=== PATIENT | female | born 2005 | race Caucasian/White ===

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

== ENCOUNTER 2024-04-25 17:30 | Emergency (ER) | payer MEDICAID, SELFPAY ==
[2024-04-25 17:41] VITALS: BP 131/83; PULSE 97; RESP 16; TEMP 36.9; O2SAT 98; BMI 51.9
--- NOTE | 2024-04-25 17:52 | XRR_ITS ---
PROCEDURE INFORMATION: Exam: XR Left Hand Exam date and time: 04/25/2024 6:11 PM Age: 18 years old Clinical indication: Pain and injury or trauma; Left; Patient HX: Lt hand pain; Dog bite to lt distal index finger TECHNIQUE: Imaging protocol: Radiologic exam of the left hand. Views: 3 or more views. COMPARISON: No relevant prior studies available. FINDINGS: Bones/joints: Normal. Soft tissues: Normal. XR/XR hand LT min 3V* [id number] IMPRESSION: No acute findings.
[2024-04-25] MEDS: amoxicillin-clav 875-125 mg Tablet 1 TAB PO (18:12)
--- NOTE | 2024-04-25 18:19 | ED_ITS ---
HPI - Animal Bite General: Chief Complaint: Animal Bite Stated Complaint: dog bit left hand first finger Time Seen by Provider: 04/25/24 17:37 History of Present Illness: Healthy 18-year-old female presents emergency room after she was bit by dog. It was her dog. She has a puncture wound on the palmar side of her index finger. No other injuries. Neurovascularly intact. Bleeding is controlled. No obvious deformities. Related Data Previous Rx's Medication Instructions Recorded naproxen 500 mg tablet 500 mg PO BID #20 tabs 07/07/21 amoxicillin 875 mg-potassium 1 tab PO BID #14 tabs 04/29/22 clavulanate 125 mg tablet amoxicillin 875 mg-potassium 1 tab PO BID 10 days #20 tabs 04/25/24 clavulanate 125 mg tablet Allergies Allergy/AdvReac Type Severity Reaction Status Date / Time No Known Allergies Allergy Verified 07/07/21 20:34 Review of Systems Narrative: Constitutional symptoms: Negative except as documented in HPI. Skin symptoms: Negative except as documented in HPI. Eye symptoms: Negative except as documented in HPI. ENMT symptoms: Negative except as documented in HPI. Respiratory symptoms: Negative except as documented in HPI. Cardiovascular symptoms: Negative except as documented in HPI. Gastrointestinal symptoms: Negative except as documented in HPI. Genitourinary symptoms: Negative except as documented in HPI. Musculoskeletal symptoms: Negative except as documented in HPI. Neurologic symptoms: Negative except as documented in HPI. Psychiatric symptoms: Negative except as documented in HPI. Endocrine symptoms: Negative except as documented in HPI. [facility] ED PFSH: Medical History No pertinent family history Surgical History No pertinent past surgical history Physical Exam Narrative: EXAM NARRATIVE: General: Alert, no acute distress. Skin: warm and dry. Puncture wound on the distal index finger, palmar side. Bleeding controlled. No deformities. Neurovascularly intact. Head: Normocephalic Neck: Trachea midline Eye: Extraocular movements are intact. Ears, nose, mouth and throat: Oral mucosa moist Respiratory: Respirations are non-labored Musculoskeletal: Normal ROM Neurological: Alert and oriented, No focal neurological deficit observed. Psychiatric: Cooperative, appropriate mood & affect. Course Vital Signs: Vital signs: Vital Signs Temperature 98.4 F 04/25/24 17:41 Pulse Rate 97 04/25/24 17:41 Respiratory Rate 16 04/25/24 17:41 Blood Pressure 131/83 04/25/24 17:41 Pulse Oximetry 98 04/25/24 17:41 Oxygen Delivery Me thod Room Air 04/25/24 17:41 MDM - Animal Bite Medical Decision Making X-ray of the left hand shows no fractures of the affected finger. Films were interpreted by myself the emergency room provider and pending final radiology review. Assessment and plan: Dog bite ? First dose Augmentin here in the emergency room - Discharged home - Discussed plan with patient. Answered any questions. - Evaluation and treatment of this problem were appropriate in the emergency setting. XR interpretation done by ED provider, pending radiology final review Discharge Plan Discharge Patient Disposition: Home Clinical Impression: Dog bite Condition: Stable Prescriptions: New amoxicillin-pot clavulanate 875-125 mg tablet 1 tab PO BID 10 Days Qty: 20 0RF No Action naproxen 500 mg tablet 500 mg PO BID Qty: 20 0RF amoxicillin-pot clavulanate 875-125 mg tablet 1 tab PO BID Qty: 14 0RF Discharge Orders: Discharge ED (Routine); Ordered 04/25/24 Ordered By: Shanti Smith Discharge Diet: Usual diet Discharge Activity: Resume usual activity Patient Instructions: Animal Bite (ED) Activity Restrictions/Additional Instructions: Thank you for choosing [facility] for your healthcare needs today. Please realize this is an emergency room and that we are providing you with a medical screening exam and this may not be complete and all inclusive of all the testing and or work up that you may need to determine your ailment or severity of your illness. You have been screened and evaluated and felt safe for discharge. Health conditions do change or evolve sometimes and as such it is important that you follow up with your Primary Doctor to be re checked, 3-5 days is a general good time frame for follow up. You are always welcome to return to the ED for re assessment if your symptoms are worsening or you have new concerns Coding Level of Care Code ED Can Repairer for Sarah Noel
[2024-04-25 18:37] VITALS: BP 135/81; PULSE 86; RESP 17; O2SAT 99
--- NOTE | 2024-04-25 18:37 | PC.NURSE ---
wound soaked in betadine and sterile water for 5 min, cleansed and dried then gauze and coban dressing placed. Pt tolerated well.
== END 2024-04-25 18:35 | disposition home or self-care (01) ==
PROVIDERS: Emergency Provider Emergency Medicine
DX: S61.251A Open bite of left index finger without damage to nail, initial encounter (principal); W54.0XXA Bitten by dog, initial encounter
CPT/HCPCS: 73130; 99283

== ENCOUNTER 2025-03-05 18:50 | Emergency (ER) | payer SELFPAY ==
--- OUTSIDE RECORDS SUMMARY | 2021-07-20 09:15 | XMS_ITS | Continuity of Care Document ---
Author Organization [facility] Address [id number] [address] Phone Care Team Providers Care Director Global Market Research Name Role Phone Luan Worrell DDSew Unavailable Unavailable Allergies, Adverse Reactions, Alerts Substance Reaction Status Criticality No Known Allergies Active No Inform ation Procedures Procedure Date Intraoral Periapical First Film Limited Oral Evaluation Problem Focused EDR Approval Note Resin-Based Composite Two Surfaces, Anterior Resin-Based Composite Two Surfaces, Anterior EDR Approval Note Bitewings Four Films Intraoral Periapical First Film Intraoral Periapical Each Additional Film Intraoral Periapical Each Additional Film Intraoral Periapical Each Additional Film Panoramic Film Comprehensive Oral Evaluatio n New Or Established Prophylaxis Adult Topical Fluoride Varnish; Therapeutic Ap plication Sealant Per Tooth Sealant Per Tooth Sealant Per Tooth Sealant Per Tooth Sealant Per Tooth Sealant Per Tooth Sealant Per Tooth Sealant Per Tooth EDR Approval Note Advance Directives Directive Yes / No Effective Date File Name No Information Encounters Encounter Description Practice Location Reason(s) For Visit Diagnoses Date Provider Providers Copied on Encounter [facility], [id number] [facility], [place], [id number], [place] tel:[phone] [facility] No Information 1 Anaid Mullins. [address] [place], [address] , [place]. tel:[phone] Referring Provider: Harpreet Worrell, [address] [place], [address] . tel:[phone] [facility], [id number] [facility], [place], [id number], [place] tel:[phone] [facility] No Information 1 Anaid Mullins. [address], [address] , [place]. tel:[phone] Referring Provider: Harpreet Worrell, [address] [place], [address] . [phone] sulting Provider: Leta Moncada, [address] [place], [address] . tel:[phone] [facility], [id number]- [facility], [place], [place], [id number], [place] tel:[phone] [facility] Encounter for dental exam and cleaning w/o abnormal findingsEncounter for prophylactic fluoride administration 1 Anaid Mullins. [address], [address] , [place]. tel:[phone] Referring Provider: Harpreet Worrell, [address] [place], [address] . tel:[phone] Family History Family Member Type Diagnosis Age At Onset No Information Payers Payer name Insurance type Covered libertarian ID haim toussaint(s) [facility] [id number] Social History Type Description Quantity Date Captured Comments Alcohol Use Details No Caffeine Use Details Unknown Tobacco Use Status No Information Smoking Status No Information Sex Female Sexual Orientation Heterosexual Gender Identity Female Chief Complaint And Reason For Visit No Information Reason For Referral Reason For Referral No Information History Of Present Illness Encounter Date Complaint History Of Prese nt Illness No Information Functional Status Date Functional Assessmen t No Information Instructions Date Instruction Additional Infor mation Lifestyle education Related to D ental Examination Assessments Type Assessment Date No Information Patient Care Teams Name Effective Dates (start - stop) Status Members No Information
--- OUTSIDE RECORDS SUMMARY | 2024-10-31 18:10 | XMS_ITS | Continuity of Care Document ---
Author Organization [facility]. If a dditional information is needed, contact Health Information Management at [phone] Address [address] [place] [address] Phone Care Team Providers Care Point Of Care Technician Name Role Phone Unavailable Unavailable Unavailable Unavailable Unavailable Unavailable Unavailable Unavailable Unavailable Unavailable Unavailable Unavailable Problems Sprain of ankle Onset:31-Oct-2024 Nannette Combs DO Allergies and Adverse Reactions No Known Allergies(Allergy) Onset: 31-Oct-2024 Procedures FOOT LEFTResult:PATIENT NAME: FREIDA BRASWELL UNIT NO: [id number] EXAMS: CPT CODE: [id number] XR FOOT LEFT 51856 REASON FOR EXAM: Ankle/foot injury. Calcaneal pain. TIME OF EXAM: 10/31/2024 10:21 PM COMPARISON: None TECHNIQUE: 3 views of the left ankle and foot FINDINGS: LEFT ANKLE: There is no acute fracture or dislocation in the left ankle. Ankle mortise is intact. Joint spaces are well maintained. LEFT FOOT: There is no acute fracture dislocation in the left foot. Bipartite medial hallux sesamoid bone is noted. 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 Joint spaces are maintained. No unexpected radiopaque foreign body is visualized. IMPRESSION: 1. No acute fracture or dislocation in the left ankle or foot. at 7448 Reported and signed by: ADRIANE WILHELM MD CC: TECHNOLOGIST: Gera Piedra RTR CT TRANSCRIBED DATE/Time: 10/31/20242327 BY: [email or web address] EXAM COMPLETE DATE/TIME: 20241031 D/TM:10/31/2024 (5083) [facility] ER NAME: FREIDA BRASWELL [address] [facility] HP: AGE: 19 S:F [place] [address] : 2005 LOC: E.ED PHYS: Himanshu Shukla DO PHONE #: [phone] EXAM DATE: 10/31/2024 STATUS: DEP ER FAX #: [phone] A#: [id number] U#: [id number] PAGE 1 Signed Report *Final Page* Date:31-Oct-2024 Status:Completed ANKLE LEFTResult:PATIENT NAME: FREIDA BRASWELL UNIT NO: [id number] EXAMS: CPT CODE: [id number] XR ANKLE 3 V LT [address]1396 REASON FOR EXAM: Ankle/foot injury. Calcaneal pain. TIME OF EXAM: 10/31/2024 10:21 PM COMPARISON: None TECHNIQUE: 3 views of the left ankle and foot FINDINGS: LEFT ANKLE: There is no acute fracture or dislocation in the left ankle. Ankle mortise is intact. Joint spaces are well maintained. LEFT FOOT: There is no acute fracture dislocation in the left foot. Bipartite medial hallux sesamoid bone is noted. 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 Joint spaces are maintained. No unexpected radiopaque foreign body is visualized. IMPRESSION: 1. No acute fracture or dislocation in the left ankle or foot. at 2328 Reported and signed by: ADRIANE WILHELM MD CC: TECHNOLOGIST: Gera Piedra RTR CT TRANSCRIBED DATE/Time: 10/31/20248 BY: [email or web address] EXAM COMPLETE DATE/TIME: 20241031 D/TM:10/31/2024 (2333) [facility] ER NAME: FREIDA BRASWELL [address] [facility] HP: AGE: 19 S:F [place] [address] : 2005 LOC: E.ED PHYS: Himanshu Shukla DO PHONE #: [phone] EXAM DATE: 10/31/2024 STATUS: DEP ER FAX #: [phone] A#: [id number] U#: [id number] PAGE 1 Signed Report *Final Page* Date:31-Oct-2024 Status:Completed Social History Smoking Status Never smoked tobacco Recorded: 31-Oct-2024 Vital Signs 31-Oct-2024 22:00 Pulse99 Comments:99 Respiratory Rate18 Comments:18 O2 NVV481% Comments:100 BP Laerpmau017ve[Hg] Comments:14 3 BP Vbhiiudqu40ct[Hg] Comments:88 Height5.2545416[ft_us] Comments: 5 Gsrcul153.55kg Comments:131.550 31-Oct-2024 22:00 DAQ07ar/m2 Comments:53.0 Encounters Emergency Encounter Reason:L ANKLE INJURY Encounter Diagnosis:Other and unspecified overexertion or strenuous movements or postures, initial encounter,Sprain of unspecified ligament of left ankle, initial encounter 31-Oct-2024 21:[id number] 23:10 [facility] Discharge Disposition:Discharged to home or self care (routine discharge) Nannette Combs FC-25-Pid31-Oct-2024 [facility] ([facility]) [facility] PROVIDER REPORTREPORT#:[id number] REPORT STATUS: FSignDATE:10/31/24 TIME: 2308PATIENT: FREIDA BRASWELL UNIT #: [id number]#: [id number] ROOM/BED: E.EDDOB: [birth year] AGE: 19 SEX: PCP PHYS: No Primary or Family PhysicianADM DATE: 10/31/24 INI AUTH: Himanshu Brunson DOED ADMIT LAST SIG: Himanshu Brunson DOREP SERV REP SERV TM: 2309 * ALL edits or amendments must be made on the electronic/computer document *HPI GREETGeneralInitial Greet Date/Time 10/31/242147Clinical NoteClinical NoteFirst Documented: Result Date Time Pulse Ox 100 10/310 B/P 143/88 10/31 2199 O2 Delivery Room air 10/31 2199 Pulse 99 10/31 2199 Resp 18 10/310Last Documented: Result Date Time Pulse Ox 100 10/310 B/P 143/88 10/31 2199 O2 Delivery Room air 10/31 2199 Pulse 99 10/31 2199 Resp 18 10/31 2199Patient is very pleasant 19-year-old female presenting for evaluation of leftankle pain. Patient [place] off the side of the pool with her left foot immediatelyfelt a pain in her left ankle. She endorses some pain in her left Achillesregion but also has pain at the lateral malleolus. Did not sustain anyadditional injury.Physical ExamGen: awake, alert and in no acute distressCardiac: regular rate and rhythmPulmonary: no respiratory distress, speaking in full sentencesExtremities: Ambulatory in no acute distress and able to bear weight onbilateral lower extremities. Tenderness palpation of the lateral malleolus aswell as some tenderness palpation in the region of the Achilles. Able toplantarflex without difficulty. Achilles tendon easily palpable withoutmobility. +2 dorsalis pedis and posterior tibial pulses bilaterally.Neurovascular intact.Neuro: Grossly normal speech and normal motorMedical Decision Making / Complexity of Problem- Number and complexity of problems addressed: 1 acute traumatic injury- History obtained from additional independent historian(s):- I have reviewed prior external notes from:- I have ordered: see below for labs/imaging tests that have been ordered andreviewed.- I have independently interpreted test(s): final interpretation of images is byboard certified radiologist, but I have reviewed the imaging studies and myinterpretation is:- I have discussed management/test interpretation with:- Risk of Complications and/or Morbidity or Mortality of Patient Management:moderate.- Medications/prescriptions management: Below- Based on the seriousness of patient's presentation and comorbidities, thefollowing interventions were ordered and done: Below- Social determinants of health that impact diagnosis or treatment:- Disposition of the patient/consideration of hospitalization: DischargePast Medical HistoryStated Complaint L ANKLE INJURYAllergiesCoded Allergies:No Known Allergies (10/31/24)Smoking status for patients 13 years old or older: Never SmokerCOURSEDataDiagnosticsRecent Impressions:DIAGNOSTIC RADIOLOGY - XR FOOT LEFT 10/31 2220 Report Impression - Status: SIGNED Entered: 10/31/2024 0773IMPRESSION:1. No acute fracture or dislocation in the left ankle or foot.Impression By: NICOLE - ADRIANE WILHELM, SHANEIAGNOSTIC RADIOLOGY - XR ANKLE 3 V LT 10/31 2220 Report Impression - Status: SIGNED Entered: 10/31/2024 2333IMPRESSION:1. No acute fracture or dislocation in the left ankle or foot.Impression By: NICOLE - ADRIANE WILHELM, MDPatient Discharge DepartureVital Signs/ConditionVital SignsFirst Documented: Result Date Time Pulse Ox 100 10/31 2200 B/P 143/88 10/31 2200 O2 Delivery Room air 10/31 2199 Pulse 99 10/31 2200 Resp 18 10/31 2200Last Documented: Result Date Time Pulse Ox 100 10/31 2200 B/P 143/88 10/31 2200 O2 Delivery Room air 10/31 2199 Pulse 99 10/31 2200 Resp 18 10/31 2199All vital signs available at the time of this entry have been reviewed.Clinical ImpressionClinical ImpressionPrimary Impression: Ankle sprainDisposition DecisionDischarge )( Discharged to Home Yes )( Time 2309 )( Date 10/31/24Discharge/Care PlanPatient Instructions Ankle SprainReferralsProvider Referral: No Primary or Family PhysicianDeparture Forms*[facility] #: [id number] OF REPORT Plan of Treatment Future Tests Future scheduled test information is unavailable Pending Tests Pending diagnostic test information is unavailable Future Visits Future appointment information is unavailable Referrals to Other Providers Reason for Referral Referral Start Date Provider Provider Contact Information Provider Address No Primary or Family Physician Future Procedures Future procedure information is unavailable Future Medications Future medication information is unavailable Patient Instructions Instruction Admit Date Ankle Sprain October 31, 2024 9:3 9pm Assessments Diagnosis Onset Date Resolution Status Admit Date Ankle sprain Active October 31, 2024 9:39pm
--- OUTSIDE RECORDS SUMMARY | 2025-03-05 18:08 | XMS_ITS ---
Author Organization [employer] [facility] Care Team Providers Care Roustabout Crew Leader Name Role Phone Himanshu Brunson DO Unavailable Unavailable REFERRED, SELF Unavailable Unavailable Physician, No Primary or Family Unavailable Unavailable Encounters Encounter Date Encounter Type Encounter Diagnosis Care Pro vider Facility Start: 10-31-2024 21:39-0400 End: 10-31-2024 23:100400 Emergency department patient visit Sprain of unspecified ligament of left ankle, initial encounter Himanshu Brunson DO [facility] Emergency department patient visit Himanshu Brunson DO [facility] Payers Date Payer Normalized Payer MEDICAID PENDING MEDICAID [id number] Problems Active Problems Problem Classification Problem Date Last Recorded Documented Date Chronic Condition Indicator Provider E Codes: Natural/environmen t (2 sources) Other and unspecified overexertion or strenuous movements or postures, initial encounter 11-03-2024 Not applicable Himanshu Brunson DO Past or Other Problems Problem Classification Problem Date Last Recorded Documented Date Chronic Condition Indicator Provider Sprains and strains (2 sources) Sprain of unspecified ligament of left ankle, initial encounter 11-03-2024 Episodic Himanshu Brunson DO Clinical Notes 10-31-2024 Note Date & Type Note Facility 10-31-2024 - XR ANKLE 3 V LT PATIENT NAME: FREIDA BRASWELL UNIT NO: [id number] EXAMS: CPT CODE: [id number] XR ANKLE 3 V LT 04361 REASON FOR EXAM: Ankle/foot injury. Calcaneal pain. [...] EXAM COMPLETE DATE/TIME: 20241031 D/TM:10/31/2024 (2333) [facility] ER NAME: FREIDA BRASWELL [address] [facility] HP: AGE: 19 S:[place] [address] : 2005 LOC: E.ED PHYS: Himanshu Shukla DO PHONE #: [phone] EXAM DATE: 10/31/2024 STATUS: DEP ER FAX #: [phone] A#: [id number] U#: [id number] PAGE 1 Signed Report *Final Page* [facility] 10-31-2024 - XR ANKLE 3 V LT PATIENT NAME: FREIDA BRASWELL UNIT NO: [id number] EXAMS: CPT CODE: [id number] XR ANKLE 3 V LT [address]64 REASON FOR EXAM: Ankle/foot injury. Calcaneal pain. [...] EXAM COMPLETE DATE/TIME: 20241031 D/TM:10/31/2024 (2333) [facility] ER NAME: FREIDA BRASWELL [facility] HP: AGE: 19 S:[place] [address] : 2005 LOC: E.ED PHYS: Himanshu Shukla DO PHONE #: [phone] EXAM DATE: 10/31/2024 STATUS: [facility] ER FAX #: [phone] A#: [id number] U#: [id number] PAGE 1 Signed Report *Final Page* [facility] 10-31-2024 - XR FOOT LEFT PATIENT NAME: FREIDA BRASWELL UNIT NO: [id number] EXAMS: CPT CODE: [id number] XR FOOT LEFT 59576 REASON FOR EXAM: Ankle/foot injury. Calcaneal pain. [...] EXAM COMPLETE DATE/TIME: 20241031 D/TM:10/31/2024 (2333) [facility] ER NAME: FREIDA BRASWELL [address] [facility] HP: AGE: 19 S:[place] [address] : 2005 LOC: E.ED PHYS: Himanshu Shukla DO PHONE #: [phone] EXAM DATE: 10/31/2024 STATUS: DEP ER FAX #: [phone] A#: [id number] U#: [id number] PAGE 1 Signed Report *Final Page* Clint Sigala 10-31-2024 - XR FOOT LEFT PATIENT NAME: FREIDA BRASWELL UNIT NO: [id number] EXAMS: CPT CODE: [id number] XR FOOT LEFT 98665 REASON FOR EXAM: Ankle/foot injury. Calcaneal pain. [...] EXAM COMPLETE DATE/TIME: 20241031 D/TM:10/31/2024 (2333) [facility] ER NAME: FREIDA BRASWELL [address] HP: AGE: 19 S:F [place] [address] : 2005 LOC: E.ED PHYS: Himanshu Shukla DO PHONE #: [phone] EXAM DATE: 10/31/2024 STATUS: [facility] ER FAX #: [phone] A#: [id number] U#: [id number] PAGE 1 Signed Report *Final Page* Clint [place] 10-31-2024 ED Clin[facility] [place] [facility] PROVID[facility] REPORT REPORT#:[id number] REPORT STATUS: Draft DATE:10/31/24 TIME: 2308 PATIENT: FREIDA BRASWELL UNIT #: [id number] ROOM/BED: E.ED - HB2 WW : [birth year] AGE: 19 SEX: PCP PHYS: No Primary or Family Physician ADM DATE: 10/31/24 INI AUTH: Himanshu Brunson DO ED ADMIT LAST SIG: REP SERV REP SERV TM: 2308 * ALL edits or amendments must be made on the electronic/computer document * HPI GREET General Initial Greet Date/Time 10/31/242147 Clinical Note Clinical Note First Documented: Result Date Time Pulse Ox 100 10/31 2200 B/P 143/88 10/31 2200 O2 Delivery Room air 10/31 2200 Pulse 99 10/31 2200 Resp 18 10/310 Last Documented: Result Date Time Pulse Ox 100 10/31 2200 B/P 143/88 10/31 2200 O2 Delivery Room air 10/31 2200 Pulse 99 10/31 2200 Resp 18 10/31 2200 Past Medical History Stated Complaint L ANKLE INJURY Allergies Coded Allergies: No Known Allergies (10/31/24) Smoking status for patients 13 years old or older: Never Smoker Patient Discharge Departure Vital Signs/Condition Vital Signs First Documented: Result Date Time Pulse Ox 100 10/31 2200 B/P 143/88 10/31 2200 O2 Delivery Room air 10/31 2200 Pulse 99 10/31 2200 Resp 18 10/31 2200 Last Documented: Result Date Time Pulse Ox 100 10/31 2200 B/P 143/88 10/31 2200 O2 Delivery Room air 10/31 2200 Pulse 99 10/31 2200 Resp 18 10/31 2200 All vital signs available at the time of this entry have been reviewed. Clinical Impression Clinical Impression Primary Impression: Ankle sprain Disposition Decision Discharge )( Discharged to Home Yes )( Time 2308 )( Date 10/31/24 Discharge/Care Plan Patient Instructions Ankle Sprain Referrals PCP Referral: No Primary or Family Physician Departure Forms *[facility] ED ADULT RPT #: [id number] END OF REPORT [facility] 10-31-2024 ED Clinician Note * [facility] [place] [facility] PROVID[facility] REPORT REPORT#:[id number] REPORT STATUS: Draft DATE:10/31/24 TIME: 2308 PATIENT: FREIDA BRASWELL UNIT #: [id number] ROOM/BED: E.ED : 04 AGE: 19 SEX: PCP PHYS: No Primary or Family Physician ADM DATE: 10/31/24 INI AUTH: Himanshu Brunson DO ED ADMIT LAST SIG: REP SERV REP SERV TM: 2308 * ALL edits or amendments must be made on the electronic/computer document * HPI GREET General Initial Greet Date/Time 10/31/242147 Clinical Note Clinical Note First Documented: Result Date Time Pulse Ox 100 10/31 2200 B/P 143/88 10/31 2200 O2 Delivery Room air 10/31 2199 Pulse 99 10/310 Resp 18 10/31 2199 Last Documented: Result Date Time Pulse Ox 100 10/31 2200 B/P 143/88 10/31 2200 O2 Delivery Room air 10/31 2199 Pulse 99 10/31 2200 Resp 18 10/31 2199 Patient is very pleasant 19-year-old female presenting for evaluation of left ankle pain. Patient was staying at a hotel with family and was sitting at the pool when she pushed off the side of the pool with her left foot immediately felt a pain in her left ankle. She endorses some pain in her left Achilles region but also has pain at the lateral malleolus. Did not sustain any additional injury. Physical Exam Gen: awake, alert and in no acute distress Cardiac: regular rate and rhythm Pulmonary: no respiratory distress, speaking in full sentences Extremities: Ambulatory in no acute distress and able to bear weight on bilateral lower extremities. Tenderness palpation of the lateral malleolus as well as some tenderness palpation in the region of the Achilles. Able to plantarflex without difficulty. Achilles tendon easily palpable without mobility. +2 dorsalis pedis and posterior tibial pulses bilaterally. Neurovascular intact. Neuro: Grossly normal speech and normal motor Medical Decision Making / Complexity of Problem - Number and complexity of problems addressed: 1 acute traumatic injury - History obtained from additional independent historian(s): - I have reviewed prior external notes from: - I have ordered: see below for labs/imaging tests that have been ordered and reviewed. - I have independently interpreted test(s): final interpretation of images is by board certified radiologist, but I have reviewed the imaging studies and my interpretation is: - I have discussed management/test interpretation with: - Risk of Complications and/or Morbidity or Mortality of Patient Management: moderate. - Medications/prescriptions management: Below - Based on the seriousness of patient's presentation and comorbidities, the following interventions were ordered and done: Below - Social determinants of health that impact diagnosis or treatment: - Disposition of the patient/consideration of hospitalization: Discharge Past Medical History Stated Complaint L ANKLE INJURY Allergies Coded Allergies: No Known Allergies (10/31/24) Smoking status for patients 13 years old or older: Never Smoker COURSE Data Diagnostics Recent Impressions: DIAGNOSTIC RADIOLOGY - XR FOOT LEFT 10/31 2220 Report Impression - Status: SIGNED Entered: 10/31/20243 IMPRESSION: 1. No acute fracture or dislocation in the left ankle or foot. Impression By: NICOLE WILHELM MD DIAGNOSTIC RADIOLOGY - XR ANKLE 3 V LT 10/31 2220 Report Impression - Status: SIGNED Entered: 10/31/20243 IMPRESSION: 1. No acute fracture or dislocation in the left ankle or foot. Impression By: NICOLE WILHELM MD Patient Discharge Departure Vital Signs/Condition Vital Signs First Documented: Result Date Time Pulse Ox 100 10/310 B/P 143/88 10/310 O2 Delivery Room air 10/31 2199 Pulse 99 10/310 Resp 18 10/31 2199 Last Documented: Result Date Time Pulse Ox 100 10/310 B/P 143/88 10/31 2199 O2 Delivery Room air 10/31 2199 Pulse 99 10/31 2199 Resp 18 10/31 2199 All vital signs available at the time of this entry have been reviewed. Clinical Impression Clinical Impression Primary Impression: Ankle sprain Disposition Decision Discharge )( Discharged to Home Yes )( Time 230 )( Date 10/31/24 Discharge/Care Plan Patient Instructions Ankle Sprain Referrals Provider Referral: No Primary or Family Physician Departure Forms *[facility] ED ADULT RPT #: [id number] END OF REPORT Clint Columbus 10-31-2024 ED Clinician Note * [facility] [place] [facility] REPORT REPORT#:[id number] REPORT STATUS: FSign DATE:10/31/24 TIME: 2308 PATIENT: FREIDA BRASWELL UNIT #: [id number] ROOM/BED: E.ED : 04 AGE: 19 SEX: PCP PHYS: No Primary or Family Physician ADM DATE: 10/31/24 INI AUTH: Himanshu Brunson DO ED ADMIT LAST SIG: Himanshu Brunson DO REP SERV REP SERV TM: 2308 * ALL edits or amendments must be made on the electronic/computer document * HPI GREET General Initial Greet Date/Time 10/31/242147 Clinical Note Clinical Note First Documented: Result Date Time Pulse Ox 100 10/31 2200 B/P 143/88 10/31 2200 O2 Delivery Room air 10/31 2200 Pulse 99 10/31 2200 Resp 18 10/31 2199 Last Documented: Result Date Time Pulse Ox 100 10/31 2200 B/P 143/88 10/31 2200 O2 Delivery Room air 10/310 Pulse 99 10/31 2200 Resp 18 10/310 Patient is very pleasant 19-year-old female presenting for evaluation of left ankle pain. Patient was staying at a hotel with family and was sitting at the pool when she pushed off the side of the pool with her left foot immediately felt a pain in her left ankle. She endorses some pain in her left Achilles region but also has pain at the lateral malleolus. Did not sustain any additional injury. Physical Exam Gen: awake, alert and in no acute distress Cardiac: regular rate and rhythm Pulmonary: no respiratory distress, speaking in full sentences Extremities: Ambulatory in no acute distress and able to bear weight on bilateral lower extremities. Tenderness palpation of the lateral malleolus as well as some tenderness palpation in the region of the Achilles. Able to plantarflex without difficulty. Achilles tendon easily palpable without mobility. +2 dorsalis pedis and posterior tibial pulses bilaterally. Neurovascular intact. Neuro: Grossly normal speech and normal motor Medical Decision Making / Complexity of Problem - Number and complexity of problems addressed: 1 acute traumatic injury - History obtained from additional independent historian(s): - I have reviewed prior external notes from: - I have ordered: see below for labs/imaging tests that have been ordered and reviewed. - I have independently interpreted test(s): final interpretation of images is by board certified radiologist, but I have reviewed the imaging studies and my interpretation is: - I have discussed management/test interpretation with: - Risk of Complications and/or Morbidity or Mortality of Patient Management: moderate. - Medications/prescriptions management: Below - Based on the seriousness of patient's presentation and comorbidities, the following interventions were ordered and done: Below - Social determinants of health that impact diagnosis or treatment: - Disposition of the patient/consideration of hospitalization: Discharge Past Medical History Stated Complaint L ANKLE INJURY Allergies Coded Allergies: No Known Allergies (10/31/24) Smoking status for patients 13 years old or older: Never Smoker COURSE Data Diagnostics Recent Impressions: DIAGNOSTIC RADIOLOGY - XR FOOT LEFT 10/31 2220 Report Impression - Status: SIGNED Entered: 10/31/20242332 IMPRESSION: 1. No acute fracture or dislocation in the left ankle or foot. Impression By: NICOLE WILHELM MD DIAGNOSTIC RADIOLOGY - XR ANKLE 3 V LT 10/31 2220 Report Impression - Status: SIGNED Entered: 10/31/20242332 IMPRESSION: 1. No acute fracture or dislocation in the left ankle or foot. Impression By: NICOLE WILHELM MD Patient Discharge Departure Vital Signs/Condition Vital Signs First Documented: Result Date Time Pulse Ox 100 10/31 2199 B/P 143/88 10/31 2199 O2 Delivery Room air 10/31 2199 Pulse 99 10/310 Resp 18 10/31 2199 Last Documented: Result Date Time Pulse Ox 100 10/31 2199 B/P 143/88 10/31 2199 O2 Delivery Room air 10/31 2199 Pulse 99 10/31 2199 Resp 10/31 All vital signs available at the time of this entry have been reviewed. Clinical Impression Clinical Impression Primary Impression: Ankle sprain Disposition Decision Discharge )( Discharged to Home Yes )( Time 2309 )( Date 10/31/24 Discharge/Care Plan Patient Instructions Ankle Sprain Referrals Provider Referral: No Primary or Family Physician Departure Forms *[facility] ED ADULT at 0414 RPT #: [id number] END OF REPORT Clint Sigala Additional Source Comments FOR RECORDS PERTAINING TO PATIENTS WHO ARE OR HAVE BEEN ENROLLED IN A CHEMICAL DEPENDENCY/SUBSTANCEABUSE PROGRAM, SOME INFORMATION MAY BE OMITTED. This clinical summary was aggregated from multiple sources. Caution should be exercised in using it in the provision of clinical care. This summary normalizes information from multiple sources, and as a consequence, information in this document may materially change the coding, format and clinical context of patient data. In addition, data may be omitted in some cases. CLINICAL DECISIONS SHOULD BE BASED ON THE PRIMARY CLINICAL RECORDS. [employer] provides no warranty or guarantee of the accuracy or completeness of information in this document.The following information is based on time limited clinical information
[2025-03-05 18:52] VITALS: BP 135/88; PULSE 93; RESP 16; TEMP 37.2; O2SAT 99; BMI 45.7
--- OUTSIDE RECORDS SUMMARY | 2025-03-05 18:57 | XMS_ITS | Encounter Summary ---
Author Organization [facility] Address [address] [place] [address] Care Team Providers Care Marketing Operations Coordinator Name Role Phone Norma Lara MD Primary Care Provider [phone] Encounter Details Date Type Department Care Team (Latest Contact Info) Description 03/14/[address] [facility] Ear, Nose and Throat 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) Social History Tobacco Use Types Packs/Day Years Used Date Smoking Tobacco: Never Assessed Comments Unknown Sex and Gender Information Value Date Recorded Sex Assigned at Not on file Legal Sex Female 1:06 AM CDT Gender Identity Not on file Sexual Orientation Not on file documented as of this encounter Plan of Treatment Not on file documented as of this encounter Visit Diagnoses Diagnosis Benign neoplasm of other specified sites- Primary documented in this encounter Care Teams Marketing Operations Coordinator Relationship Specialty Start Date End Date Norma Lara MD PCP - General Family Practice 10/19/10 documented as of this encounter
--- OUTSIDE RECORDS SUMMARY | 2025-03-05 18:57 | XMS_ITS | Encounter Summary ---
Author Organization [facility] Address [address] [place] [address] Care Team Providers Care Pick Up And Delivery Driver Name Role Phone Norma Lara MD Primary Care Provider [phone] Encounter Details Date Type Department Care Team (Latest Contact Info) Description 03/14/2006 Outpatient Historical [facility] Head and Neck Surgery-[address] [place] [id number] Tommy Baron MD NO ADDRESS ON FILE [...] Primary documented in this encounter Care Teams Pick Up And Delivery Driver Relationship Specialty Start Date End Date Norma Lara MD PCP - General Family Practice 10/19/10 documented as of this encounter
--- OUTSIDE RECORDS SUMMARY | 2025-03-05 18:57 | XMS_ITS | Clinical Summary ---
Author Organization [facility] Address [address] Attn: [place] [address] Care Team Providers Care News Production Supervisor Name Role Phone Norma Lara MD Primary Care Provider [phone] Allergies No known active allergies Medications topiramate (TOPAMAX) 50 mg tabletIndication s:Migraine with aura and without status migrainosus, not intractable Take 1 Tablet (50 mg) by mouth 2 times daily. 60 Tablet 2 7 Active amitriptyline (ELAVIL) 10 mg tabletIndication s:Migraine with aura and without status migrainosus, not intractable 1 po qhs x 2 weeks then can increase to 2 po qhs. 60 Tablet 0 7 Active acetaminophen (TYLENOL) 325 mg tablet Take 325 mg by mouth every 4 hours as needed. 7 Active naproxen (NAPROSYN) 500 mg tablet Take 500 mg by mouth 2 times daily with meals. 7 Active chlorphen-phenyl eph-ibuprofen 4-10-200 mg Tablet Take by mouth. 7 Active methylphenidate HCl (RITALIN) 5 mg tablet Take 10 mg by mouth 2 times daily . 6 Active Active Problems Problem Noted Date Diagnosed Date ADD (attention deficit disorder) 05/06/2016 Learning disability 05/06/2016 Migraine with aura and witho ut status migrainosus, not intractable 05/06/2016 Nasal bones, closed fracture 10/25/2010 Immunizations Immunization Administration Dates Next Due (M-M-R II/PRIORIX)(12 MO UP) MEASLES, MUMPS AND RUBELLA VIRUS VACCINE, 0.5 ML IM/SUBCUT 04/09/2006 Dt Dtp Dtap Vaccine 01/08/2010, 6,04/05/2005,2004,2004 HIB, Unspecified Formulation 08/26/2005, 04/05/2005,2004,2004 Hepatitis B Vaccine 2004,2004,2003 IPV/OPV 01/08/2010, 6,04/05/2005,2004,2004 Pneumococcal 7-valent conjug ate vaccine IM 04/09/2006,04/05/2005,2004,2004 Family History Medical History Relation Name Comments Migraines Father gets lightheade d with migraine Hypertension Maternal Grandmother Cancer Mother Hypertension Mother Stroke Other 1 great-grandparents Parkinson's Disease Other 2 great-aunt Seizures Other 3 second cousin epilepsy for m ost of his life Cancer Paternal Grandfather Diabetes Paternal Grandmother Other Paternal Uncle of Duche nne muscular dystrophy Migraines Sister 1 Migraines Sister 2 1 sister can't think str aight when having a migraine Seizures Sister 2 1 sister 2-3 seizures Mental Retardation Neg Hx Relation Name Status Comments Father Maternal Grandmother Mother Other 1 great-grandparents Other 2 great-aunt Other 3 second cousin Paternal Grandfather Paternal Grandmother Paternal Uncle Sister 1 Sister 2 1 sister Alive Social History Tobacco Use Types Packs/Day Years Used Date Smoking Tobacco: Never Comments Unknown Sex and Gender Information Value Date Recorded Sex Assigned at Not on file Legal Sex Female 1:29 PM INSTRUMENT STERILIZER Gender Identity Not on file Sexual Orientation Not on file Last Filed Vital Signs Vital Sign Reading Time Taken Comments Blood Pressure 138/77 12/25/2016 10:38 PM CDT Pulse 89 11/21/2016 8:29 AM CDT Temperature 37.4 C (99.4 F) 12/25/2016 10:38 PM CDT Respiratory Rate 18 12/25/2016 10:38 PM CDT Oxygen Saturation - - Inhaled Oxygen Concentration - - Weight 74.8 kg (165 lb) 12/25/2016 7:04 PM CDT Height 12.7 cm (5 ) 12/25/2016 7:04 PM CDT Body Mass Index 4640.34 12/25/2016 7:04 PM CDT Plan of Treatment Health Maintenance Due Date Last Done Comments HEPATITIS B VACCINES (4 of 4 - 4-dose series) 02/01/2005 2004, 2004, 2004 CHLAMYDIA SCREENING (ANNUAL) 11-24 YEARS 2015 DTAP/TDAP/TD VACCINES (6 - Tdap) 2015 01/08/2010, 04/09/2006, 04/05/2005, Additional history exists HPV VACCINES (1 - 3-dose series) 2019 INFLUENZA VACCINE (#1) 2025 Care Teams News Production Supervisor Relationship Specialty Start Date End Date Norma Lara MD [address] [id number] PCP - General Family Practice 10/19/10
--- OUTSIDE RECORDS SUMMARY | 2025-03-05 18:57 | XMS_ITS | Encounter Summary ---
Author Organization [facility] Address [address] [place] [address] Care Team Providers Care Rn Medical Surgical Name Role Phone Norma Lara MD Primary Care Provider [phone] Encounter Details Date Type Department Care Team (Latest Contact Info) Description 11/27/2005 Outpatient Historical [facility] Ear, Nose and Throat [address] [place] [address] Tommy Baron MD NO ADDRESS ON FILE Swelling, Mass, or Lump in Head and Neck (Primary Dx) Social History Tobacco Use Types [...] as of this encounter Visit Diagnoses Diagnosis Swelling, mass, or lump in head and neck- Primary documented in this encounter Care Teams Rn Medical Surgical Relationship Specialty Start Date End Date Norma Lara MD PCP - General Family Practice 10/19/10 documented as of this encounter
--- OUTSIDE RECORDS SUMMARY | 2025-03-05 18:57 | XMS_ITS | Clinical Summary ---
Author Organization [facility] Address [address] [facility] [place] [address] Care Team Providers Care Groundhand Name Role Phone Norma Lara MD Primary Care Provider [phone] Allergies No known active allergies Medications methylphenidate (RITALIN) 5 mg tablet Take 10 mg by mouth 2 times daily . Active acetaminophen (TYLENOL) 325 mg tablet Take 325 mg by mouth every 4 hours as needed. Active chlorphen-phenyl eph-ibuprofen (ADVIL ALLERGY-CONGESTI ON RLF) 4-10-200 mg Tablet Take by mouth. Active topiramate (TOPAMAX) 50 mg tabletIndication s:Migraine with aura and without status migrainosus, not intractable Take 1 Tablet (50 mg) by mouth 2 times daily. 60 Tablet 2 7 Active amitriptyline (ELAVIL) 10 mg tabletIndication s:Migraine with aura and without status migrainosus, not intractable 1 po qhs x 2 weeks then can increase to 2 po qhs. 60 Tablet 7 Active naproxen (NAPROSYN) 500 mg tablet Take 500 mg by mouth 2 times daily with meals. Active Active Problems Problem Noted Date Diagnosed [...] Hypertension Maternal Grandmother Cancer Mother Hypertension Mother Seizures Other 1 second cousin epilepsy for m ost of his life Stroke Other 2 great-grandparents Parkinson's Disease Other 3 great-aunt Cancer Paternal Grandfather Diabetes Paternal Grandmother Other Paternal Uncle of Duche nne muscular dystrophy Migraines Sister 1 1 sister can't think str aight when having a migraine Seizures Sister 1 1 sister 2-3 seizures Migraines Sister 2 Mental Retardation Neg Hx Relation Name Status Comments Father Maternal Grandmother Mother Other 1 second cousin Other 2 great-grandparents Other 3 great-aunt Paternal Grandfather Paternal Grandmother Paternal Uncle Sister 1 1 sister Alive Sister 2 Social History Tobacco Use Types Packs/Day Years Used Date Smoking Tobacco: Never Comments No Sex and Gender Information Value Date Recorded Sex Assigned at Not on file Legal Sex Female 1:06 AM CDT Gender Identity Not on file Sexual Orientation Not on file Occupation Industry Job Start Date Job End Date Not on file Not on file Not on file Not on file Last Filed Vital Signs Vital Sign Reading Time Taken Comments Blood Pressure 138/77 12/25/2016 10:38 PM CDT Pulse 89 11/21/2016 8:29 AM CDT Temperature 37.4 C (99.4 F) 12/25/2016 10:38 PM CDT Respiratory Rate 18 12/25/2016 10:38 PM CDT Oxygen Saturation 98% 12/25/2016 10:38 PM CDT Inhaled Oxygen Concentration - - Weight 74.8 kg (165 lb) 12/25/2016 7:04 PM CDT Height 12.7 cm (5 ) 12/25/2016 7:04 PM CDT Body Mass Index 4640.31 12/25/2016 7:04 PM CDT Plan of Treatment Health Maintenance Due Date Last Done Comments HEPATITIS B VACCINES (4 of 4 - 4-dose series) 02/01/2005 2004, 2004, 2004 CHLAMYDIA SCREENING (ANNUAL) 11-24 YEARS 2015 DTAP/TDAP/TD VACCINES (6 - Tdap) 2015 01/08/2010, 04/09/2006, 04/05/2005, Additional history exists HPV VACCINES (1 - 3-dose series) 2019 INFLUENZA VACCINE (#1) [address] [place] [address] [place] [place] [address] [facility] Care Teams Groundhand Relationship Specialty Start Date End Date Norma Lara MD PCP - General Family Practice 10/19/10
--- OUTSIDE RECORDS SUMMARY | 2025-03-05 18:57 | XMS_ITS | Encounter Summary ---
Author Organization [facility] Address [address] [place] [address] Care Team Providers Care Recruitment Specialist Name Role Phone Norma Lara MD Primary Care Provider [phone] Encounter Details Date Type Department Care Team (Latest Contact Info) Description 03/14/2006 Outpatient Historical [facility] [address] [place] [address] [place] [address] Tommy Baron MD NO ADDRESS ON FILE [...] Primary documented in this encounter Care Teams Recruitment Specialist Relationship Specialty Start Date End Date Norma Lara MD PCP - General Family Practice 10/19/10 documented as of this encounter
--- OUTSIDE RECORDS SUMMARY | 2025-03-05 18:57 | XMS_ITS | Encounter Summary ---
Author Organization [facility] Address [address] [place] [address] Care Team Providers Care Machine Sander Name Role Phone Norma Lara MD Primary Care Provider [phone] Encounter Details Date Type Department Care Team (Latest Contact Info) Description 03/28/2006 Outpatient Historical [facility] Ear, Nose and Throat [address] [place] [address] Tommy Baron MD NO ADDRESS ON FILE Follow-Up Examination, Following Unspecified Surgery (Primary Dx) Social History Tobacco Use Types [...] as of this encounter Visit Diagnoses Diagnosis Follow-up examination, following unspecified surgery- Primary documented in this encounter Care Teams Machine Sander Relationship Specialty Start Date End Date Norma Lara MD PCP - General Family Practice 10/19/10 documented as of this encounter
--- OUTSIDE RECORDS SUMMARY | 2025-03-05 18:57 | XMS_ITS | Encounter Summary ---
Author Organization [facility] Address [address] [place] [address] Care Team Providers Care Junior Paralegal Name Role Phone Norma Lara MD Primary Care Provider [phone] Encounter Details Date Type Department Care Team (Latest Contact Info) Description 02/27/2006 Outpatient Historical [facility] Ear, Nose and Throat [address] [place] [address] Tommy Baron MD NO ADDRESS [...] Primary documented in this encounter Care Teams Junior Paralegal Relationship Specialty Start Date End Date Norma Lara MD PCP - General Family Practice 10/19/10 documented as of this encounter
--- NOTE | 2025-03-06 00:43 | ED_ITS ---
HPI - Eye Problem General: Chief complaint: Eye Problems Stated complaint: E eye swelling Time Seen by Provider: 03/05/25 18:58 Source: patient Mode of arrival: ambulatory Limitations: no limitations History of Present Illness: Patient is a 19-year-old female presents the emergency department complaining of redness and irritation to her right eye that began a few hours before coming in. She states that the pain is to the medial aspect, there is some swelling near the tear duct. She is able to express drainage if she presses on this area. No significant visual changes, no fever, no other concerning symptoms reported at this time. No foreign body sensation or trauma reported. MD chief complaint: eye pain and eye redness Onset (ago): hour(s) Onset description: sudden Duration: constant Location: right eye Associated symptoms: Denies fever(s), headache(s), nausea, neck pain or vomiting Related Data Previous Rx's ?Medication ?Instructions ?Recorded naproxen 500 mg tablet 500 mg PO BID #20 tabs 07/07 amoxicillin 875 mg-potassium 1 tab PO BID #14 tabs 08/08 clavulanate 125 mg tablet amoxicillin 875 mg-potassium 1 tab PO BID 7 days #14 t abs 03/05/25 clavulanate 125 mg tablet Allergies Allergy/AdvReac Type Severity Reaction Status Date / Time No Known Allergies Allergy Verified 07/07/21 20:34 Review of Systems General: Reports: 10 or more systems reviewed and unremarkable except in HPI and below Const: Denies: fever(s), chills or fatigue Eyes: Reports: eye discomfort, eye discharge and eye redness ENMT: Denies: throat pain, ear or mastoid pain or nasal discharge Card: Denies: chest pain, palpitations, swelling of feet/ankles or lightheadedness Resp: Denies: dyspnea, productive cough or wheezing GI: Denies: abdominal pain, nausea, vomiting, diarrhea or constipation : Denies: flank pain, difficulty voiding, dysuria or urinary frequency Musc: Denies: neck pain, back pain or joint pain Skin/Breast: Denies: rash Neuro: Denies: headache(s), numbness in extremities or weakness in extremities PFSH ED PFSH: Medical History No pertinent family history Surgical History No pertinent past surgical history Physical Exam Const: COMMON NORMALS: no acute distress and no limitations GENERAL APPEARANCE: cooperative, comfortable and well developed ORIENTATION/CONSCIOUSNESS: Yes awake HENMT: COMMON NORMALS: normocephalic, atraumatic and hearing grossly normal bilaterally HEAD & SCALP: normocephalic and atraumatic Eye: COMMON NORMALS: Equal, round and reactive pupils present and EOMs intact bilaterally PUPIL: Yes Equal, round and reactive pupils present OTHER: Diffuse conjunctival injection to the right eye. Clear drainage about the medial epicanthus of the right eye. Mild swelling noted at this area. Neck/C-Spine: COMMON NORMALS: full ROM, supple and no JVD Resp: COMMON NORMALS: normal respiratory effort, No retractions, No use of accessory muscles and clear to auscultation bilaterally AUSCULTATION: clear to auscultation bilaterally Cardio: COMMON NORMALS: no JVD, regular rate, regular rhythm, No clicks present (Cardio), No murmurs present (Cardio) and No rub (Cardio) RATE: regular rate RHYTHM: regular rhythm Extremity: COMMON NORMALS: normal to inspection, full ROM and capillary refill normal Skin: COMMON NORMALS: no rashes or lesions noted GENERAL SKIN EXAM: no rashes or lesions noted Course Vital Signs: Vital signs: Vital Signs Temperature 99.0 F 03/05/25 18:52 Pulse Rate 93 03/05/25 18:52 Respiratory Rate 16 03/05/25 18:52 Blood Pressure 135/88 03/05/25 18:52 Pulse Oximetry 99 03/05/25 18:52 Oxygen Delivery Me thod Room Air 03/05/25 18:52 MDM - Eye Problem Medical Decision Making This appears clinically consistent with an acute dacryocystitis of the right eye, the diffuse conjunctival injection likely secondary to the scratching due to irritation. Will treat with antibiotics, other conservative measures discussed such as warm compress and massaging, and general return precautions given. No radiology studies performed this visit Discharge Plan Discharge Patient Disposition: Home Clinical Impression: Acute dacryocystitis Condition: Stable Prescriptions: New amoxicillin-pot clavulanate 875-125 mg tablet 1 tab PO BID 7 Days Qty: 14 0RF No Action naproxen 500 mg tablet 500 mg PO BID Qty: 20 0RF amoxicillin-pot clavulanate 875-125 mg tablet 1 tab PO BID Qty: 14 0RF Discharge Orders: Discharge ED (Routine); Ordered 03/05/25 Ordered By: Cedric Dejesus Patient Instructions: Pain Management, Patient Portal & [facility] Instructions Activity Restrictions/Additional Instructions: \Dacryocystitis Discharge Instructions Diagnosis: You have been diagnosed with acute dacryocystitis, which is an infection of the tear (lacrimal) sac near the inner corner of your eye. This condition is usually caused by bacteria and often presents with pain, redness, and swelling in that area. Medication: - Augmentin (amoxicillin/clavulanate): Take as prescribed, typically one tablet every 12 hours (twice daily) for 7 days. - Administration: Take each dose with a meal or snack to help reduce stomach upset. - Do not skip doses and complete the full course of antibiotics, even if you start to feel better before finishing the medication. Stopping early can lead to the infection returning and may increase the risk of antibiotic resistance. Supportive Care: - Apply warm compresses to the affected area several times a day if comfortable. This can help relieve pain and promote drainage. - Keep the area clean and avoid touching or rubbing your eye. Possible Side Effects: - Common: Upset stomach, diarrhea, or mild rash. - Serious: Severe diarrhea (especially if watery or bloody), persistent vomiting, difficulty breathing, swelling of the face or throat, or a widespread rash. - If you experience any signs of a severe allergic reaction (such as difficulty breathing, swelling of the face/lips/tongue, or a severe rash), stop taking the medication and seek emergency care immediately. - If diarrhea is severe or lasts more than 2?3 days, contact your healthcare provider promptly. When to Seek Medical Attention: - If your symptoms worsen (increasing pain, swelling, redness, or fever), or if you develop changes in vision, double vision, or difficulty moving your eye, seek medical attention immediately. These may be signs of a more serious infection that requires urgent care. - If you do not notice improvement after 2?3 days of treatment, contact your healthcare provider. Prevention and Follow-Up: - Wash your hands frequently and avoid touching your eyes. - Attend any scheduled follow-up appointments to ensure the infection is resolving. Additional Information: - Augmentin is a penicillin-type antibiotic. Inform your healthcare provider if you have a history of allergy to penicillins or cephalosporins. - Store the medication as directed. If you are using a liquid form, keep it refrigerated and shake well before each use. If you have any questions or concerns about your medication or symptoms, contact your healthcare provider. Print Language: Czech Coding Level of Care Code ED Assistant Restaurant General Manager for Sarah Noel
== END 2025-03-05 19:48 | disposition home or self-care (01) ==
PROVIDERS: Emergency Provider Physician Assistant
DX: H04.321 Acute dacryocystitis of right lacrimal passage (principal)
CPT/HCPCS: 99283; J9999